=== PATIENT | female | born 1965 | race Caucasian/White ===

== ENCOUNTER 2020-07-28 08:06 | Outpatient (CLI) | payer OTHER, SELFPAY ==
--- NOTE | ~2020-07-28 | MM_ITS ---
EXAMINATION: MM screening [facility] BI w ysabel HISTORY: Screening TECHNIQUE: Craniocaudal and mediolateral oblique 3-D tomosynthesis images were obtained and synthetic 2-D images were generated. CAD analysis was submitted and interpreted. COMPARISON: Comparison to multiple prior studies sequentially, with oldest reviewed study dated 07/21. BREAST PARENCHYMAL COMPOSITION: There are scattered areas of fibroglandular density. FINDINGS: There is no evidence of suspicious mass, calcification, or architectural distortion to sugg est malignancy in either breast. There has been no suspicious interval change. IMPRESSION: 1. No mammographic evidence of malignancy. 2. Recommend routine screening mammography in one year. BI-RADS Category 1: Negative Reviewed, dictated and finalized at location A.
== END 2020-07-28 08:07 | disposition home or self-care (01) ==
PROVIDERS: PCP Internal Medicine; Visit Provider Internal Medicine
DX: Z12.31 Encounter for screening mammogram for malignant neoplasm of breast (principal)
CPT/HCPCS: 77063; 77067

== ENCOUNTER 2021-03-29 15:30 | Outpatient (RCR) | payer OTHER, SELFPAY ==
--- NOTE | 2021-03-01 15:13 | PTOPEVAL ---
PHYSICAL THERAPY EVALUATION AND PLAN OF CARE 03-01-21 Thank you for referring Ev Smith to [facility] for the diagnosis of low back pain, sciatica. She is scheduled to be seen for therapy? 1 x/week for 5 weeks. Due to her work schedule, she requested 1x/wk. Please review, sign, date and return this plan of care GEORGI. I agree with and certify that the following plan of care is medically necessary. Referring Physician Date Attending Provider: LEAH Combs PT Outpatient Evaluation Document 03/01/21 14:05 JESUS (Rec: 03/01/21 15:13 JESUS [id number]) Past Medical History Source of Past Medical History Patient Cardiovascular History Hx Hypertension Yes: med control Genitourinary History Hx Other Genitourinary Disorders Yes: meds for uringary incontinence Musculoskeletal History Hx Arthritis Yes: told her she needs TKR B; Hx Back Pain Yes: chronic back pain HEENT History Hx Other HEENT Disorders Yes: glasses Other History Hx Other Medical Conditions Yes: have not had COVID vaccine Evaluation Information Problem Diagnosis lumbar DJD, B sciatica Onset Aug 2020 Subjective Information gradual increase in back pain Query Text:As Reported By Patient/ 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; issue of chronic back pain; medrol pack in Nov helped decrease pain and spasms of back; pain has improved since onset of back pain; order for PT is dated November , but pt's mother was hospitalized and pt was not able to start therapy; has been doing exercises from internet- knee to chest, pull knee to chest, stretch leg to the side--they helped; Diagnostic Tests X-Rays For This Problem Yes: B hips mild degenerative change; B knee arthritis MRI For This Problem No Other Tests For This Problem No Previous Treatments Previous Treatments For This Problem no PT for back Prior Level of Function Activity Level (Last 3 Months) 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
--- NOTE | 2021-03-15 15:17 | PCPTNOTE ---
pt did not show for today's appt, called her and talked with her; she forgot today's appt; reminded her of next appt- stated she would be there
--- NOTE | 2021-04-05 16:07 | PCPTNOTE ---
pt did not show for today's reevaluation;
--- NOTE | 2021-04-17 15:10 | PCPTNOTE ---
PHYSICAL THERAPY DISCHARGE 04-17-21 Attending Provider: KATHY Combs Patient:vE Smith Date of :1965 Ms. Smith has not returned for any further treatments since 03/29/2021, therefore she will be discharged at this time. She received 3 PT sessions, from March 01 to March 29 for the diagnosis of low back pain, sciatica. She did not show for 2 appointments. The goals were not addressed. Thank you for referring Ev to [facility]. Please review, sign, date and return this discharge summary GEORGI. I have been updated about the patient's current status and I agree with discharge from the above service at this time. Referring Physician Date
== END 2021-04-19 08:17 | disposition home or self-care (01) ==
LOC: ANHPT 15:30
PROVIDERS: PCP Internal Medicine; Visit Provider Nurse Practitioner Family
DX: M54.31 Sciatica, right side (principal); M54.32 Sciatica, left side; M47.816 Spondylosis without myelopathy or radiculopathy, lumbar region
CPT/HCPCS: 97110; 97161

== ENCOUNTER 2021-07-19 16:24 | Outpatient (CLI) | payer OTHER, SELFPAY ==
--- NOTE | ~2021-07-19 | MR_ITS ---
EXAMINATION: MR lumbar spine wo con DATE: 07/19/2021 16:58 INDICATION: Low back pain TECHNIQUE: Magnetic resonance imaging (MRI) of the lumbar spine was performed without intravenous con trast. Sequences included sagittal T2-weighted FSE, sagittal T2-weighted FS FSE, sagittal T1-weighted FSE, and axial T2-weighted FSE. COMPARISON: None FINDINGS: Straightening of the normal lumbar lordosis. Severe right-sided predominant disc height loss at L4-L5 with right-sided degenerative endplate remodeling resulting in minimal right-sided vertebral body he ight loss at both vertebral bodies. Vertebral body heights are otherwise normal. Moderate disc height loss at L1-L2. Mild disc height loss at T10-T11, T11-T12, L2-L3, L3-L4 and L5-S1. Fibrofatty degener ative endplate changes anteriorly at a few of the lumbar endplates. Marrow signal is otherwise normal . The conus medullaris terminates at T12-L1. There is normal signal in the caudal spinal cord. Parave rtebral soft tissues are unremarkable. The following disc levels are specifically discussed: T12-L1: The disc does not extend beyond the endplate margin. There is no facet joint osteoarthritis. There is no neural foraminal stenosis. There is no central canal stenosis. L1-L2: Disc is bulging. There is mild left and mild to moderate right facet joint osteoarthritis. The re is minimal bilateral neural foraminal stenosis. There is mild central canal stenosis. L2-L3: Disc is bulging. There is mild bilateral facet joint osteoarthritis. There is minimal bilatera l neural foraminal stenosis. There is mild central canal stenosis. L3-L4: Disc is bulging with superimposed annular fissure and left foraminal zone disc extrusion with disc material extending a few millimeters cephalad and caudal to the level of the endplates. There is mild right and moderate left facet joint osteoarthritis. There is mild right and mild to moderate le ft neural foraminal stenosis. There is mild central canal stenosis. There is narrowing of the left la teral recess with disc extrusion exerting mass effect upon the traversing left L4 nerve root. L4-L5: Annular fissure with broad-based disc extrusion with disc material extending couple millimeter s cephalad and caudal to the level of the endplates extending from foraminal zone to foraminal zone. There is mild left and moderate right facet joint osteoarthritis. There is moderate left and moderate to severe right neural foraminal stenosis. There is mild central canal stenosis. L5-S1: Disc is bulging with superimposed annular fissure and central disc extrusion with disc protrus ion extending up to 3 mm cephalad to the level of the inferior endplate of L5. There is mild right an d moderate left facet joint osteoarthritis. There is mild right and moderate left neural foraminal st enosis. There is mild central canal stenosis and mild narrowing of the left lateral recess. IMPRESSION: 1. Moderate to severe lumbar spondylosis. Reviewed, dictated and finalized at location A.
== END 2021-07-19 16:25 | disposition home or self-care (01) ==
LOC: ANHIMG 16:29
PROVIDERS: PCP Internal Medicine; Visit Provider Nurse Practitioner Family
DX: M54.5 Low back pain (principal); M47.816 Spondylosis without myelopathy or radiculopathy, lumbar region
CPT/HCPCS: 72148

== ENCOUNTER 2021-11-01 15:10 | Outpatient (CLI) | payer OTHER, SELFPAY ==
--- NOTE | ~2021-11-01 | MM_ITS ---
EXAMINATION: MM screening [facility] BI w ysabel HISTORY: Screening mammogram TECHNIQUE: Craniocaudal and mediolateral oblique 3-D tomosynthesis images were obtained and synthetic 2-D images were generated. CAD analysis was submitted and interpreted. COMPARISON: 07/28/2020, 10/08/2015, 07/21/2012 BREAST PARENCHYMAL COMPOSITION: There are scattered areas of fibroglandular density. FINDINGS: There is no evidence of suspicious mass, calcification, or architectural distortion to sugg est malignancy in either breast. There has been no suspicious interval change. IMPRESSION: 1. No mammographic evidence of malignancy. 2. Recommend routine screening mammography in one year. BI-RADS Category 1: Negative Reviewed, dictated and finalized at location A. [employer]
== END 2021-11-01 15:11 | disposition home or self-care (01) ==
LOC: ANHIMG 15:11
PROVIDERS: PCP Internal Medicine; Visit Provider Nurse Practitioner
DX: Z12.31 Encounter for screening mammogram for malignant neoplasm of breast (principal)
CPT/HCPCS: 77063; 77067

== ENCOUNTER 2022-04-18 08:47 | Outpatient (CLI) | payer OTHER, SELFPAY ==
[2022-04-18 10:28] LABS: Thyroid Stimulating Hormone 0.794 uIU/mL (0.465-4.680)
== END 2022-04-18 08:48 | disposition home or self-care (01) ==
LOC: ANHLAB 08:49
PROVIDERS: PCP Internal Medicine; Visit Provider Clinical Nurse Specialist
DX: I10 Essential (primary) hypertension (principal)
CPT/HCPCS: 36415; 84443

== ENCOUNTER 2022-06-28 09:34 | Outpatient (CLI) | payer OTHER, SELFPAY ==
[2022-06-28 09:54] LABS: Basophils Percent Auto 0.3 % (0.2-1.2); Eosinophils Absolute Auto 0.1 K/mm3 (0-0.3); Eosinophils Percent Auto 0.9 % (0-4.4); Hematocrit 34.7 % (37.0-47.0); Hemoglobin 11.1 g/dL (12.0-15.0); Immature Granulocyte Absolute 0.04 K/mm3 (0.00-0.031); Immature Granulocyte Percent A 0.4 % (0-0.5); Lymphocytes Absolute Auto 3.21 K/mm3 (0.9-3.2); Lymphocytes Percent Auto 35.4 % (18.3-44.2); Mean Corpuscular Volume 90.6 fl (80-100); Mean Platelet Volume 8.6 fl (7.4-10.4); Monocytes Absolute Auto 0.6 K/mm3 (0.1-0.6); Monocytes Percent Auto 6.2 % (2.6-8.5); Neutrophils Absolute Auto 5.2 K/mm3 (1.3-6.7); Neutrophils Percent Auto 56.8 % (45.5-73.1); Platelet Count Result 275 k/mm3 (150-375); Red Blood Count 3.83 M/mm3 (4.2-5.4); Red Cell Distribution Width 13.1 % (11.5-14.5); White Blood Count 9.1 K/mm3 (4.5-10.0)
[2022-06-28 10:05] LABS: Alanine Aminotransferase 17 U/L (6-35); Albumin Level 3.8 g/dL (3.5-5.1); Alkaline Phosphatase 75 U/L (38-126); Anion Gap 9 mmol/L (8-16); Aspartate Amino Transferase 30 U/L (14-36); Bilirubin,Total 0.2 mg/dL (0.2-1.3); Blood Urea Nitrogen 13 mg/dL (7-17); Calcium 8.2 mg/dL (8.4-10.2); Carbon Dioxide 31 mmol/L (22-30); Chloride 101 mmol/L (98-107); Cholesterol 218 mg/dL (0-200); Estimated Glomerular Filt Rate > 60; Glucose 90 mg/dL (65-110); HDL Direct 35 mg/dL; Potassium 3.6 mmol/L (3.4-5.0); Sodium 141 mmol/L (137-145); Triglycerides 162 mg/dL (<150)
[2022-06-28 10:16] LABS: LDL Cholesterol Direct 137 mg/dL
[2022-06-28 10:29] LABS: Vitamin D 25 Hydroxy 30.4 ng/mL
== END 2022-06-28 09:35 | disposition home or self-care (01) ==
PROVIDERS: PCP Internal Medicine; Visit Provider Clinical Nurse Specialist
DX: Z13.228 Encounter for screening for other metabolic disorders (principal); I10 Essential (primary) hypertension; E55.9 Vitamin D deficiency, unspecified
CPT/HCPCS: 36415; 80053; 80061; 82306; 85025

== ENCOUNTER 2022-07-11 09:24 | Outpatient (CLI) | payer OTHER, SELFPAY ==
[2022-07-11 10:06] LABS: Basophils Percent Auto 0.3 % (0.2-1.2); Eosinophils Absolute Auto 0.1 K/mm3 (0-0.3); Hematocrit 37.4 % (37.0-47.0); Immature Granulocyte Absolute 0.02 K/mm3 (0.00-0.031); Immature Granulocyte Percent A 0.2 % (0-0.5); Lymphocytes Absolute Auto 3.03 K/mm3 (0.9-3.2); Mean Corpuscular HGB Conc 32.1 g/dl (32-36); Mean Corpuscular Hemoglobin 29.2 pg (26-34); Mean Platelet Volume 9.1 fl (7.4-10.4); Monocytes Absolute Auto 0.7 K/mm3 (0.1-0.6); Monocytes Percent Auto 6.9 % (2.6-8.5); Neutrophils Absolute Auto 5.9 K/mm3 (1.3-6.7); Neutrophils Percent Auto 60.6 % (45.5-73.1); Platelet Count Result 292 k/mm3 (150-375); Red Blood Count 4.11 M/mm3 (4.2-5.4); Red Cell Distribution Width 13.3 % (11.5-14.5); White Blood Count 9.8 K/mm3 (4.5-10.0)
[2022-07-11 10:40] LABS: Iron 53 ug/dL (37-170)
[2022-07-11 11:00] LABS: Percent Iron Saturation 20 % (20-50)
[2022-07-11 11:18] LABS: Anion Gap 7 mmol/L (8-16); Blood Urea Nitrogen 11 mg/dL (7-17); Calcium 9.1 mg/dL (8.4-10.2); Carbon Dioxide 28 mmol/L (22-30); Chloride 104 mmol/L (98-107); Estimated Glomerular Filt Rate > 60; Glucose 90 mg/dL (65-110); Sodium 139 mmol/L (137-145)
[2022-07-11 11:44] LABS: Folic Acid > 20.0 ng/mL (2.76->20)
== END 2022-07-11 09:25 | disposition home or self-care (01) ==
LOC: ANHLAB 09:26
PROVIDERS: PCP Internal Medicine; Visit Provider Clinical Nurse Specialist
DX: D64.9 Anemia, unspecified (principal)
CPT/HCPCS: 36415; 80048; 82607; 82728; 82746; 83540; 83550; 85025

== ENCOUNTER 2022-10-16 13:30 | Outpatient (CLI) | payer OTHER, SELFPAY ==
--- NOTE | ~2022-10-16 | MR_ITS ---
MRI of the lumbar spine Clinical History: Back pain Technique: Axial T2-weighted images, and sagittal T1-weighted, T2-weighted, and T2 fat-sat images wer e acquired. COMPARISON: 07/19/2021 Findings: No fracture or subluxation of lumbar spine seen. Osseous alignment is unchanged. No suspici ous bone marrow signal abnormality seen. At L1-L2, there is minimal disc bulge. There is facet arthropathy. No spinal canal stenosis or neural foraminal narrowing. At L2-L3, there is minimal disc bulge with facet arthropathy. No spinal canal stenosis or neural fora etta narrowing. At L3-L4, there is minimal left foraminal disc bulge with facet arthropathy. No lillian spinal canal st enosis. Neural foramina are preserved. At L4-L5, there is disc bulge and facet joint arthropathy, probable bilateral lateral recess stenosis . There is moderate right neural foraminal narrowing and [id number] left neural foraminal narro wing. At L5-S1, there is disc bulge and facet arthropathy. No lillian spinal canal stenosis. There is moderat e to advanced left neural foraminal narrowing. Right neural foramen preserved. Paravertebral soft tissues are unremarkable. Impression: Overall, no significant change from prior exam. Degenerative spondylosis, as detailed above. Bilateral neural foraminal narrowing at L4-L5, with lateral recess stenosis at this level. Moderate to advanced left neural foraminal narrowing at L5-S1. Reviewed, dictated and finalized at [facility]. [employer]OL[employer]IC [employer]ER Impression: Overall, no significant change from prior exam. Degenerative spondylosis, as de tailed above. Bilateral neural foraminal narrowing at L4-L5, with lateral recess stenosis at this level. Moderate to advanced left neural foraminal narrowing at L5-S1.
--- NOTE | ~2022-10-16 | XR_ITS ---
Lumbosacral Spine: AP, oblique, and lateral views Clinical History: Pain Findings: The normal lordotic curve is maintained. The vertebral bodies and posterior elements are i ntact. There is advanced degenerative disc change at L4-L5 and L5-S1. There is also probable facet ar thropathy at L4-L5 and L5-S1. Grade 1 retrolisthesis of L5 over S1 noted. The sacroiliac joints are normally outlined. Impression: Grade 1 retrolisthesis of L5 over S1. Degenerative changes at L4-L5 and L5-S1, as detailed above. 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 Degenerative changes at L4-L5 and L5-S1, as detailed above.
== END 2022-10-16 13:31 | disposition home or self-care (01) ==
PROVIDERS: PCP Internal Medicine; Visit Provider Nurse Practitioner Adult Health
DX: M47.816 Spondylosis without myelopathy or radiculopathy, lumbar region (principal); M48.061 Spinal stenosis, lumbar region without neurogenic claudication
CPT/HCPCS: 72110; 72148

== ENCOUNTER 2022-12-09 13:22 | Outpatient (CLI) | payer OTHER, SELFPAY ==
--- NOTE | ~2022-12-09 | DEXA_ITS ---
Bone Density Report Name: NICOLE CASTRO Age: 56 Sex: Female Ethnicity: White Date of : 1965 Indication: postmenopausal; screening for osteoporosis; Referring Provider: BARB BOLANOS Study: Bone densitometry was performed. Exam Date: December 09, 2022 Accession number: [id number] Bone Density: Region BMD T-score Z-score Classification AP Spine(L1, L2, L3) 1.010 -0.1 1.1 Normal Femoral Neck (Left) 0.756 -0.8 0.3 Normal Total Hip (Left) 0.845 -0.8 0.0 Normal Femoral Neck (Right) 0.690 -1.4 -0.3 Osteopenia Total Hip (Right) 0.807 -1.1 -0.3 Osteopenia Total Hip Mean 0.826 -1.0 -0.2 Normal World Health Organization criteria for BMD impression classify patients as: Normal (T-score at or above -1.0), Osteopenia (T-score between -1.0 and -2.5), or Osteoporosis (T-score at or below -2.5). 10-year Fracture Risk(1): Major Osteoporotic Fracture 6.6% Hip Fracture 0.5% Reported Risk Factors: [place] (), Neck BMD=0.690, BMI=22.3 (1) FRAX(R) Version 3.08. Fracture probability calculated for an untreated patient. Fracture probability may be lower if the patient has received treatment. Clinical Information Provided by Patient: Has used the following medications: Prolia (i.e. denosumab) Patient maximum height was 65.5 Menopause Age: 46 Drinks caffeinated beverages Onset of menses at age 12 Number of children 3 Impression: The patient has low bone mass, based on the Right Femoral Neck T-score. The patient has an estimated ten-year risk of hip fracture of 0.5% and an estimated ten-year risk of major fracture of 6.6%, based on the WHO FRAX algorithm. Discussion: BONE DENSITY IS LOW AT ONE OR MORE SKELETAL SITES. This patient's lowest T-score is low at one or more skeletal sites. It meets the World Health Organization's (WHO) criteria for ?low bone mass? (T-score between -1.0 and -2.5). The patient's 10-year risk of fracture as calculated by FRAX is less than the threshold where pharmacological therapy is recommended by the National Osteoporosis Foundation (NOF). However, all treatment decisions require clinical judgment and consideration of individual patient factors, including patient preferences, comorbidities, previous drug use, risk factors not captured in the FRAX model (e.g., frailty, falls, vitamin D deficiency, increased bone turnover, interval significant decline in bone density) and possible under or overestimation of fracture risk by FRAX. The patient should follow a healthful lifestyle (good nutrition with adequate calcium and vitamin D, and appropriate weight-bearing exercise). Follow-Up: Consider repeating this study in 2 to 3 years to reassess this patient's status, or sooner if there is some new clinical indication. Reported by: HERMELINDA on 12/09/2022 1:52:00 PM. ____
== END 2022-12-09 13:23 | disposition home or self-care (01) ==
PROVIDERS: PCP Internal Medicine; Visit Provider Clinical Nurse Specialist
DX: Z78.0 Asymptomatic menopausal state (principal); M85.851 Other specified disorders of bone density and structure, right thigh
CPT/HCPCS: 77080

== ENCOUNTER 2023-07-09 12:13 | Outpatient (CLI) | payer OTHER, SELFPAY ==
[2023-07-09 11:00] LABS: Hematocrit 38.4 % (37.0-47.0); Hemoglobin 11.9 g/dL (12.0-15.0); Mean Corpuscular Hemoglobin 28.7 pg (26-34); Mean Corpuscular Volume 92.8 fl (80-100); Mean Platelet Volume 9.2 fl (7.4-10.4); Platelet Count Result 299 k/mm3 (150-375); Red Blood Count 4.14 M/mm3 (4.2-5.4); Red Cell Distribution Width 13.5 % (11.5-14.5)
[2023-07-09 11:16] LABS: Alanine Aminotransferase 23 U/L (6-35); Alkaline Phosphatase 59 U/L (38-126); Anion Gap 4 mmol/L (8-16); Aspartate Amino Transferase 24 U/L (14-36); Bilirubin,Total 0.2 mg/dL (0.2-1.3); Blood Urea Nitrogen 14 mg/dL (7-17); CRP < 0.5 mg/dL (<1.0); Calcium 8.8 mg/dL (8.4-10.2); Carbon Dioxide 30 mmol/L (22-30); Chloride 105 mmol/L (98-107); Estimated Glomerular Filt Rate > 60; Glucose 96 mg/dL (65-110); Potassium 3.7 mmol/L (3.4-5.0); Sodium 139 mmol/L (137-145)
[2023-07-09 11:37] LABS: Erythrocyte Sedimentation Rate 26 mm/hr (0-20)
[2023-07-09 12:19] LABS: Thyroid Stimulating Hormone Reflex 0.986 uIU/mL (0.465-4.68)
[2023-07-09 13:16] LABS: Toxigenic C. Diff NEGATIVE (NEGATIVE)
[2023-07-13 10:20] LABS: Immunoglobulin A 174 mg/dL (47-310); TTG IGA AB <1.0 U/mL (<15.0)
== END 2023-07-09 12:14 | disposition home or self-care (01) ==
PROVIDERS: PCP Internal Medicine; Visit Provider Nurse Practitioner
DX: K52.9 Noninfective gastroenteritis and colitis, unspecified (principal); R14.0 Abdominal distension (gaseous); R15.9 Full incontinence of feces
CPT/HCPCS: 36415; 80053; 82784; 84443; 85027; 85652; 86140; 86364; 87493

== ENCOUNTER 2023-07-30 08:44 | Outpatient (CLI) | payer OTHER, SELFPAY ==
--- NOTE | ~2023-07-30 | CT_ITS ---
CT of the Abdomen and Pelvis: Indication: Weight loss, chronic diarrhea Technique: 2.5 mm axial scans were obtained through the abdomen and pelvis following intravenous adm inistration of 100 cc of Omnipaque 350. Dose reduction technique was used on this scan by utilizing a utomated exposure control and iterative reconstruction technique. The dose-length product (DLP) was 2 39.79 mGy-cm. Findings: Scans through the lung bases demonstrate 4 mm right lower lobe pulmonary nodule. The liver, spleen, pancreas, gallbladder, adrenals and kidneys are within normal limits. No evidence of aortic aneurysm. No lymphadenopathy. No bowel obstruction or bowel wall thickening. There is no evidence to suggest acute appendicitis. Images through the pelvis were performed. Urinary bladder unremarkable. No adnexal mass seen. No asci rich. Impression: 4 mm right lower lobe pulmonary nodule. According to Fleischner Society criteria, for a low-risk felipa ent, no further follow-up required. For a high-risk patient, consider 12 month follow-up CT. No other significant findings. Reviewed, dictated and finalized at location . Impression: 4 mm right lower lobe pulmonary nodule. According to Fleischner Society criteri a, for a low-risk patient, no further follow-up required. For a high-risk patie nt, consider 12 month follow-up CT. No other significant findings.
== END 2023-07-30 08:45 | disposition home or self-care (01) ==
PROVIDERS: PCP Internal Medicine; Visit Provider Nurse Practitioner
DX: K52.9 Noninfective gastroenteritis and colitis, unspecified (principal); R14.0 Abdominal distension (gaseous); R63.4 Abnormal weight loss; R15.9 Full incontinence of feces; R91.1 Solitary pulmonary nodule
CPT/HCPCS: 74177; Q9967

== ENCOUNTER 2023-12-24 08:28 | Outpatient (CLI) | payer OTHER, SELFPAY ==
[2023-12-24 09:34] LABS: Basophils Percent Auto 0.4 % (0.2-1.2); Eosinophils Absolute Auto 0.1 K/mm3 (0-0.3); Eosinophils Percent Auto 1.3 % (0-4.4); Hematocrit 39.4 % (37.0-47.0); Hemoglobin 12.4 g/dL (12.0-15.0); Immature Granulocyte Absolute 0.02 K/mm3 (0.00-0.031); Immature Granulocyte Percent A 0.3 % (0-0.5); Lymphocytes Absolute Auto 3.28 K/mm3 (0.9-3.2); Mean Corpuscular HGB Conc 31.5 g/dl (32-36); Mean Corpuscular Hemoglobin 28.8 pg (26-34); Mean Corpuscular Volume 91.4 fl (80-100); Mean Platelet Volume 9.6 fl (7.4-10.4); Monocytes Absolute Auto 0.8 K/mm3 (0.1-0.6); Monocytes Percent Auto 10.6 % (2.6-8.5); Neutrophils Absolute Auto 3.4 K/mm3 (1.3-6.7); Neutrophils Percent Auto 44.4 % (45.5-73.1); Platelet Count Result 273 k/mm3 (150-375); Red Blood Count 4.31 M/mm3 (4.2-5.4); Red Cell Distribution Width 13.9 % (11.5-14.5); White Blood Count 7.6 K/mm3 (4.5-10.0)
[2023-12-24 09:47] LABS: Alanine Aminotransferase 21 U/L (6-35); Alkaline Phosphatase 67 U/L (38-126); Anion Gap 6 mmol/L (8-16); Aspartate Amino Transferase 27 U/L (14-36); Bilirubin,Total 0.3 mg/dL (0.2-1.3); Blood Urea Nitrogen 14 mg/dL (7-17); Calcium 9.2 mg/dL (8.4-10.2); Carbon Dioxide 24 mmol/L (22-30); Chloride 107 mmol/L (98-107); Cholesterol 248 mg/dL (0-200); Estimated Glomerular Filt Rate > 60; Glucose 95 mg/dL (65-110); HDL Direct 36 mg/dL; Potassium 3.8 mmol/L (3.4-5.0); Sodium 137 mmol/L (137-145); Triglycerides 96 mg/dL (<150)
[2023-12-24 09:58] LABS: LDL Cholesterol Direct 179 mg/dL
[2023-12-24 15:43] LABS: Vitamin D 25 Hydroxy 27.5 ng/mL
[2023-12-24 15:56] LABS: Thyroid Stimulating Hormone Reflex 0.723 uIU/mL (0.465-4.68)
== END 2023-12-24 08:29 | disposition home or self-care (01) ==
PROVIDERS: PCP Internal Medicine; Visit Provider Clinical Nurse Specialist
DX: E55.9 Vitamin D deficiency, unspecified (principal); Z13.228 Encounter for screening for other metabolic disorders; I10 Essential (primary) hypertension
CPT/HCPCS: 36415; 80053; 80061; 82306; 84443; 85025